=== PATIENT | male | born 1955 | race Caucasian/White ===

== ENCOUNTER 2022-03-12 22:46 | Emergency (ER) | payer MEDICARE, BC ==
[2022-03-13 18:35] VITALS: PULSE 69
[2022-03-13 18:40] VITALS: BP 150/89
== END 2022-03-13 00:55 | disposition home or self-care (01) ==
LOC: FB.ED 22:46
DX: R06.02 Shortness of breath (principal); I10 Essential (primary) hypertension; Z95.1 Presence of aortocoronary bypass graft
CPT/HCPCS: 36415; 71045; 80053; 83880; 84484; 85025; 93005; 93010; 99283; 99285-25

== ENCOUNTER 2022-11-11 06:54 | Day surgery (SDC) | payer MEDICARE, BC ==
[2022-11-11] MEDS ORDERED: Propofol 200 MG/20 ML SDV IV ONE (06:55)
[2022-11-11] MEDS ORDERED: Sodium Chloride 0.9% 10 ML Syringe FLUSH PRN (07:00)
[2022-11-11] MEDS ORDERED: Lactated Ringers 1,000 ML IV SCH (07:00)
[2022-11-11] MEDS ORDERED: Simethicone Drops 40 MG/0.6 ML 30 ML Bottle PO ONE (08:22)
[2022-11-11 09:21] VITALS: BP 96/63; PULSE 61
== END 2022-11-11 09:36 | disposition home or self-care (01) ==
LOC: FB.SDS 06:54
PROVIDERS: ATTEND Surgery
DX: Z12.11 Encounter for screening for malignant neoplasm of colon (principal); D12.0 Benign neoplasm of cecum; E78.5 Hyperlipidemia, unspecified; I25.10 Atherosclerotic heart disease of native coronary artery without angina pectoris; Z86.010 Personal history of colon polyps; Z79.899 Other long term (current) drug therapy; Z79.82 Long term (current) use of aspirin; Z88.8 Allergy status to other drugs, medicaments and biological substances; Z88.5 Allergy status to narcotic agent; Z98.890 Other specified postprocedural states
CPT/HCPCS: 00811; 45380; 45385; 88305; A9270; J2704; J7120

== ENCOUNTER 2022-11-13 18:52 | Emergency (ER) | payer MEDICARE, BC ==
[2022-11-13] MEDS ORDERED: Morphine 4 MG/ML VIAL IVPUSH ONE (19:06)
[2022-11-13] MEDS ORDERED: Ondansetron 4 MG/2 ML SDV IVPUSH ONE (19:06)
[2022-11-13] MEDS ORDERED: Sodium Chloride 0.9% 1,000 ML IV SCH (19:15)
[2022-11-13 19:27] LABS: ESTIMATED GFR 65 mL/min (>60)
[2022-11-13] MEDS ORDERED: Iopamidol 755 Mg/ML 100 ML Bottle IV ONE (19:35)
[2022-11-13] MEDS ORDERED: HYDROmorphone 2 MG/ML SDV IVPUSH ONE (20:10)
[2022-11-13] MEDS ORDERED: HYDROmorphone 2 MG/ML SDV ONE (20:47)
[2022-11-13] MEDS ORDERED: Dicyclomine 10 MG Cap PO ONE (21:11)
[2022-11-13] MEDS ORDERED: Ketorolac 30 MG/ML SDV IVPUSH ONE (21:12)
[2022-11-13] MEDS ORDERED: LORazepam 2 MG/ML SDV IVPUSH ONE (22:26)
[2022-11-13] MEDS ORDERED: Sodium Chloride 0.9% 10 ML Syringe FLUSH PRN (22:57)
[2022-11-14 00:52] VITALS: BP 167/84; PULSE 63
== END 2022-11-13 23:20 | disposition home or self-care (01) ==
LOC: FB.ED 18:52
DX: K58.9 Irritable bowel syndrome, unspecified (principal); E86.0 Dehydration; Z88.8 Allergy status to other drugs, medicaments and biological substances; Z88.5 Allergy status to narcotic agent; Z20.822 Contact with and (suspected) exposure to COVID-19
CPT/HCPCS: 36415; 74177; 80053; 81001; 83605; 84484; 85025; 86140; 87040; 93005; 93010; 96361; 96374; 96375; 99283; 99284-25; A9270-GY; J1170; J1885; J2060; J2270; J2405; J3490; J7030; Q9967; U0002